=== PATIENT | male | born 2005 | race Caucasian/White ===

== ENCOUNTER 2024-04-10 11:56 | Emergency (ER) | payer OTHER, SELFPAY ==
[2024-04-10 11:58] VITALS: BP 155/95; PULSE 85; RESP 18; TEMP 37; O2SAT 99; BMI 22.2
--- NOTE | 2024-04-10 12:18 | ED.HEATRA ---
HPI - Head Injury General Chief complaint: Head Injury/Pain Stated complaint: head laceration - WC Time Seen by Provider: 04/10/24 11:57 History of Present Illness HPI Narrative: This 19-year-old male comes in with a laceration to the left side of his head above his left ear. He was working with someone else on a vehicle and a pipe was handed him minute slipped and hit him in the head. He has a 1.5 cm linear laceration on the left side of his head. He did not have loss of consciousness. He does not report headache or any other symptoms. His tetanus status is up-to-date by his report. Related Data Home Medications ?Medication ?Instructions ?Recorded ?Confirmed No Known Home Medications 04/10/24 04/10/24 Allergies Allergy/AdvReac Type Severity Reaction Status Date / Time No Known Drug Allergies Allergy Verified 04/10/24 12:00 Review of Systems Status of ROS: Reports: 10 or more systems reviewed and unremarkable except as noted in History and below Narrative: Constitutional: No fevers, no weight gain or loss. Eyes: No discharge. No vision changes. HENT: No congestion, no sore throat, no ear pain. Cardiovascular: No chest pain, no palpitations. Respiratory: No shortness of breath, no wheezes, no cough. Gastrointestinal: No abdominal pain, no vomiting, no diarrhea. Genitourinary: No dysuria, no hematuria. Musculoskeletal: Normal range of motion. Skin: No rashes, no pruritis. Scalp laceration as described above. Neurological: No dizziness, weakness, sensory change, speech change. Endo/Heme/Allergies: No bruising or bleeding. No polydipsia. Pysch: no suicidality, no anxiety, no insomnia. All other systems reviewed and are negative. Exam Narrative: Exam Narrative: Constitutional: Well-developed, well-nourished, no acute distress. HEENT: Normocephalic, atraumatic. 1.5 cm linear laceration in the left side of his head above his left ear. There is no underlying hematoma or active bleeding. Neck: Normal range of motion. Nontender. Supple. Heart: Intact distal pulses. Lungs: No chest discomfort. No wheezes, rhonchi, or rales. Abdomen: Nontender. Back: Normal range of motion. Extremities: Normal range of motion. No injury. Skin: No rash. Warm. No erythema or pallor. Neurologic: No altered sensation. No weakness. Alert and oriented. Psychiatric: No suicidality. No anxiety or depression. No insomnia. Nursing notes and vitals signs are reviewed. Const: Vital Signs, click to edit/add: Vital Signs - 24 hr 04/10/24 11:58 Temperature 98.6 F Pulse Rate [Right Pulse Oximeter] 85 Respiratory Rate 18 Blood Pressure [Ri ght Upper Arm] 155/95 H Pulse Oximetry 99 Oxygen Delivery Me thod Room Air Course Vital Signs Vital signs: Initial Vital Signs Temperature 98.6 F 04/10/24 11:58 Temperature Source Temporal Artery Scan 04/10/24 11:58 Pulse Rate 85 04/10/24 11:58 Respiratory Rate 18 04/10/24 11:58 Blood Pressure 155/95 H 04/10/24 11:58 Blood Pressure Mean 115 H 04/10/24 11:58 Blood Pressure Position Sitting 04/10/24 11:58 Pulse Oximetry 99 04/10/24 11:58 Oxygen Delivery Method Room Air 04/10/24 11:58 Vital Signs Temperature 98.6 F 04/10/24 11:58 Pulse Rate 85 04/10/24 11:58 Respiratory Rate 18 04/10/24 11:58 Blood Pressure 155/95 H 04/10/24 11:58 Pulse Oximetry 99 04/10/24 11:58 Oxygen Delivery Method Room Air 04/10/24 11:58 Temperature 98.6 F 04/10/24 11:58 Pulse Rate 85 04/10/24 11:58 Respiratory Rate 18 04/10/24 11:58 Blood Pressure 155/95 H 04/10/24 11:58 Pulse Oximetry 99 04/10/24 11:58 Oxygen Delivery Method Room Air 04/10/24 11:58 MDM - Head Injury MDM Narrative Medical decision making narrative: This patient has a laceration to his head that would benefit from repair. I did recommend Dermabond repair and this was agreeable to the patient and his mother. Dermabond was applied with excellent results. Instructions regarding wound care were given. The patient did not have loss of consciousness and is not showing any signs of worsening symptoms such as concussion or intracranial injury. I did review nexus rules and advised against any imaging seeing these reassuring findings in the patient. Discharge Plan Discharge Clinical Impression: Laceration of scalp Patient Disposition: Home, Self-Care Condition: Improved Additional Instructions: Keep wound clean and dry. Follow up with MD or return if worsening. Prescriptions: No Action No Known Home Medications Follow Up/Referrals: Pierre Galo MD [Primary Care Provider] - Stand Alone Forms: [facility] Info Instructions
== END 2024-04-10 13:05 | disposition home or self-care (01) ==
LOC: ED 12:33
PROVIDERS: Emergency Provider Emergency Medicine Emergency Medical Services; PCP Family Medicine
DX: S01.312A Laceration without foreign body of left ear, initial encounter (principal); W22.8XXA Striking against or struck by other objects, initial encounter
CPT/HCPCS: 12011; 99283; 99284